=== PATIENT | female | born 1970 | race Caucasian/White ===

== ENCOUNTER 2018-09-18 11:00 | Emergency (ER) | payer BC ==
[2018-09-18 12:15] VITALS: BP 154/75
[2018-09-18] MEDS ORDERED: Penicillin VK TAB* 250 MG PO ONE (12:32)
--- NOTE | 2018-09-18 12:33 | UC ---
Dental HPI - HPI Summary HPI Summary: The patient is a 48-year-old female who broke a left lower tooth while eating carrots yesterday. Her tooth is now very sensitive to hot and cold. She feels like her left jaw is swelling. She is asplenic. She denies any fever or chills. - History of Current Complaint Chief Complaint: UCDentalProblem Stated Complaint: BROKEN TOOTH Time Seen by Provider: 09/18/18 12:20 Hx Obtained From: Patient Hx Last Menstrual Period: 09/04/18 Onset/Duration: Sudden Onset, Lasting Hours Severity: Severe Pain Intensity: 10 Pain Scale Used: 0-10 Numeric Aggravating Factor(s): Heat, Cold, Chewing Alleviating Factor(s): OTC Meds - transient relief with oragel...started taking T#3 Related History: Previous Dental Care on Same Tooth, Swelling Dental: 1 - fx/exposed nerve root/gum swelling - Allergies/Home Medications Allergies/Adverse Reactions: Allergies Allergy/AdvReac Type Severity Reaction Status Date / Time Latex, Natural Rubber Allergy Severe Anaphylatic Verified 09/18/18 12:15 Shock SEASONAL Allergy Mild See Comment Uncoded 09/18/18 12:15 Home Medications: Home Medications Amitriptyline TAB* [Elavil TAB*] 10 mg PO BEDTIME 09/18/18 [History Confirmed ] Pantoprazole TAB (NF) [Protonix TAB (NF)] 20 mg PO DAILY 09/18/18 [History Confirmed 09/18/18] Propranolol TAB* [Inderal TAB*] 60 mg PO DAILY 09/18/18 [History Confirmed 09/18] Ursodiol CAP* [Actigall CAP 300 MG*] 300 mg PO BID 09/18/18 [History Confirmed 09/18/18] buPROPion TAB* [Wellbutrin TAB*] 100 mg PO BID 09/18/18 [History Confirmed 09/18] celeCOXIB CAP* [CeleBREX CAP*] 100 mg PO DAILY 09/18/18 [History Confirmed 09/18] PMH/Surg Hx/FS Hx/Imm Hx Previously Healthy: Yes Endocrine History: Dyslipidemia Cardiovascular History: Hypertension - Surgical History Surgical History: Yes Surgery Procedure, Year, and Place: [place] [facility] [place]pass and Spleenectomy, 2003, [place]; [place]olecystectomy, ~2009, [facility] [place]; Tonsillectomy, ~1974 , [place]; Herniorrhaphy, 1970, [place] - Family History Known Family History: Positive: Cardiac Disease - Social History Alcohol Use: Rare Substance Use Type: None Smoking Status (MU): Never Smoked Tobacco Review of Systems Constitutional: Negative Skin: Negative Eyes: Negative ENT: Dental Pain Respiratory: Negative Cardiovascular: Negative Gastrointestinal: Negative Genitourinary: Negative Motor: Negative Neurovascular: Negative Musculoskeletal: Negative Neurological: Negative Psychological: Negative All Other Systems Reviewed And Are Negative: Yes Physical Exam Triage Information Reviewed: Yes Appearance: Well-Appearing, No Pain Distress, Well-Nourished Vital Signs: Initial Vital Signs Temp 97.8 F 09/18/18 12:10 Pulse 61 09/18/18 12:10 Resp 18 09/18/18 12:10 BP 154/75 09/18/18 12:10 Pulse Ox 100 09/18/18 12:10 Eyes: Positive: Conjunctiva Clear ENT: Positive: Hearing grossly normal. Negative: Nasal congestion, Nasal drainage, Trismus, Muffled voice, Hoarse voice Dental: Positive: Other: - abysmal dentition Respiratory: Positive: Lungs clear, Normal breath sounds, No respiratory distress, No accessory muscle use Cardiovascular: Positive: RRR, No Murmur Abdomen Description: Positive: Nontender, No Organomegaly. Negative: CVA Tenderness (R), CVA Tenderness (L) Musculoskeletal: Positive: ROM Intact, No Edema Neurological: Positive: Alert, Muscle Tone Normal Psychological Exam: Normal Skin Exam: Normal Dental Complaint Course/Dx - Differential Dx/Diagnosis Provider Diagnoses: fractured tooth. dental abscess. asplenia Discharge - Sign-Out/Discharge Documenting (check all that apply): Patient Departure All imaging exams completed and their final reports reviewed: No Studies - Discharge Plan Condition: Stable Disposition: HOME Prescriptions: Penicillin VK 500 MG TAB(NF) [Penicillin VK 500 mg Tab] 500 mg PO QID #28 tab Patient Education Materials: Dental Abscess (ED), Acute Dental Trauma (ED) Referrals: Kayleen Archibald MD [Primary Care Provider] - Additional Instructions: recheck for new or worsening symptoms recheck in 2 days if not improved see dentist first available appt - Billing Disposition and Condition Condition: STABLE Disposition: Home
== END 2018-09-18 12:50 | disposition home or self-care (01) ==
LOC: UCCORT 11:00
DX: S02.5XXA Fracture of tooth (traumatic), initial encounter for closed fracture (principal); K04.7 Periapical abscess without sinus; Q89.01 Asplenia (congenital); I10 Essential (primary) hypertension; E78.5 Hyperlipidemia, unspecified; J30.2 Other seasonal allergic rhinitis; X58.XXXA Exposure to other specified factors, initial encounter; Y92.9 Unspecified place or not applicable; Z98.84 Bariatric surgery status; Z91.040 Latex allergy status
CPT/HCPCS: 99212; A9270-GY; G0463

== ENCOUNTER 2019-02-20 10:21 | Emergency (ER) | payer BC ==
--- OUTSIDE RECORDS SUMMARY | 2019-02-20 10:28 | XMS REPORT | Continuity of Care Document ---
:1970 External Reference #:[id number] Author Name Elena Pabon NP Address [address] [address] Care Team Providers Name Role Phone Kayleen Archibald M.D. Care Team Information Intelligence Officer Unavailable Kayleen Archibald M.D. Primary Care Physician Unavailable Payers Date Identification Numbers Payment Provider Subscriber Effective: Policy Number: [id number] Essential Plan Tianna Oquendo 2015 [employer] Name: Essential Plan 1 [address] [address] PayID: [id number] [place] [address] Advance Directives Description No Information Available Problems Date Description Provider Status Onset: 10/08/2015 Migraine without aura, not refractory Nano Arthur NP Active Onset: 10/08/2015 Mild recurrent major depression Nano Arthur NP Active Onset: 10/09/2015 H/O splenectomy Kayleen Archibald M.D. Active Onset: 10/11/2015 Vitamin D deficiency Kayleen Archibald M.D. Active Onset: 01/21/2018 Microscopic hematuria Kayleen Archibald M.D. Active Onset: 01/21/2018 Low back pain Kayleen Archibald M.D. Active Onset: 12/13/2016 Calculus of bile duct without obstruction Kayleen Archibald M.D. 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 Tobacco Use Start: Unknown Nonsmoker Tobacco Use Start: Unknown Never Smoked Cigarettes Smoking Status Reviewed: 08/03/17 Never Smoked Cigarettes ETOH Use Occasionally consumes alcohol Recreational Drug Use Denies Drug Use Exercise Type/Frequency Exercises rarely Seat Belt/Car Seat Always uses seat belt Allergies, Adverse Reactions, Alerts Date Description Reaction Status Severity Comments 09/15/2015 NKDA Active 09/15/2015 Latex Active hives, tongue swelling Medications Medication Date Status Form Strength Qnty SIG Indications Ordering Provider Nitrofurantoin 02/17 Active Capsules 100mg 10cap take one N39.0 Elena Christine Monohyd s by mouth Cm twice [employer] daily for 5 days. Ibuprofen 02/10 Active Tablets 800mg 30tab take 1 tab Elena Christine /2018 s 1-2 times Cm per day [employer] Ventolin HFA 01/27 Active Aerosol 108(90Bas 18gm take 1-2 J15.9 Elena CNakita /2018 e) puffs gwen Pabon/Sarah inhaled [employer]GER every 4 hours as needed for wheezing or tightness in the chest Valsartan 01/27 Active Tablets 80mg 30tab 1 by mouth I10 Elena C. /2018 s every day SUPRIYA Pabon Amitriptyline HCL 05/13 Active Tablets 50mg 30tab Take 1 G43.009 s Tablet By Mi Archibald M.D. Every Night Tizanidine HCL 12/19 Active Tablets 4mg 60tab take one M54.31 s by mouth Dragan, as needed M.D. for pain three times per day Acetaminophen-Codei 08/04 Active Tablets 300-30mg 120ta take one G43.009 Elena Christine ne # bs tablet by mi Pabon [employer]GER every 6 hours as needed for pain Low-Ogestrel 04/02 Active Tablets 0.3-30mg- 168ta Take One mcg bs Tablet By Dragan Mouth M.D. Every Day Maxalt 12/13 Active Tablets 10mg 30tab 1 tab by G43.009 s mouth Dragan, every day M.D. as needed migraine; can repeat in 2 hours Propranolol HCL 03/29 Active Tablets 60mg 30tab Take One G43.009 Amelia s Tablet By Viri Mi [place], Every Day [employer]GER Bupropion HCL ER 10/09 Active Tablets 150mg 60tab Take Two F33.0 Amelia (XL) ER 24HR s Tablets By Viri Mouth [place], Every Day [employer] Pantoprazole Sodium 09/15 Active Tablets 20mg 60tab Take One R10.13 Kd A. s Tablet By Yulissa, Mouth M.D. Twice A Day Ursodiol Active Capsules 300mg 1 PO qd Chlorthalidone 12/18 Hx Tablets 25mg 30tab 1 by mouth I10 Elena Christine /2018 s every day Cm, - [employer]GER 01/27 Amoxicillin/Clavula 01/21 Hx Tablets 500-125mg 14tab 1 by mouth Kayleen nunu Arabella s twice a [place], - day x 7 M.D. Amitriptyline HCL 01/21 Hx Tablets 25mg 30tab Take One G43.009 Kayleen s Tablet By [place], - Mouth AT M.D. 05/13 Bedtime Naproxen 12/19 Hx Tablets 500mg 30tab take one M54.31 Elena Christine s by mouth Cm, - twice [employer] 05/13 daily needed Physical Therapy 12/19 Hx please M54.31 Elena Christine /2017 diagnose Cm, - and treat [employer]GER 01/20 for lower back pain with radiation down right leg Skelaxin 07/30 Hx Tablets 800mg 30tab 1 by mouth Elena Christine /2016 s three Cm, - times a [employer] 05/13 day needed muscle spasms Acetaminophen-Codei 06/03 Hx Tablets 300-60mg 90tab 1 tab G43.009 Kayleen ne #4 s dorothy Archibald, - times a M.D. 08/04 day needed Hydrocodone-Acetami 04/08 Hx Tablets 5-325mg 60tab 1 tab by G43.009 Kayleen mckeonhen /2016 s mouth [place], - twice a M.D. 06/03 day needed Acetaminophen-Codei 02/12 Hx Tablets 300-30mg 180ta 1 tab by G43.009 Kayleen ne #3 bs mouth [place], - every 4 M.D. 05/16 hours needed Winsome 02/12 Hx Tablets 0.35mg 30tab 1 by mouth Z30.41 s every day [place], - M.D. 05/13 Amitriptyline HCL 02/12 Hx Tablets 10mg 30tab Take One G43.009 Kayleen s Tablet By [place], - Mouth AT M.D. 01/21 Bedtime Amoxicillin/Clavula 01/06 Hx Tablets 500-125mg 14tab 1 by mouth Kayleen nunu Potassium s twice a [place], - day x 7 M.D. Hydrocodone-Acetami 12/13 Hx Tablets 5-325mg 60tab 1 tab by G43.009 Kayleen nophen s mouth [place], - twice a M.D. Orphenadrine 09/09 Hx Tablets 100mg 60tab Take One Kayleen Citrate ER ER 12HR s Tablet By [place], - Mouth M.D. 02/12 Twice Day as Needed For Muscle Spasm Hydrocodone-Acetami 08/15 Hx Tablets 5-325mg 30tab 1 twice a s day as [place], - needed M.D. 12/13 Trazodone HCL 08/09 Hx Tablets 50mg 30tab Take 1/2 - F51.01 s 1 Tablet [place], - By Mouth M.D. 02/12 Night as Needed Hydrocodone-Acetami 07/26 Hx Tablets 5-325mg 30tab 1 twice a Kayleen nophen s day as [place], - needed M.D. 08/09 Orphenadrine 03/29 Hx Tablets 100mg 60tab Take One Kayleen Citrate ER ER 12HR s Tablet By [place], - Mouth M.D. 08/09 Twice Day as Needed For Muscle Spasm Propranolol HCL 03/05 Hx Tablets 10mg 30tab 2 by mouth G43.009 Kayleen s every day [place], - M.D. 03/29 Maxalt 03/05 Hx Tablets 5mg 14tab take 1 G43.009 Nano s tablet by SUPRIYA Arthur - mouth to 12/13 abor migraine. if migraine persists after 6 hours, may repeat once then stop. maximum daily dose o Sumatriptan 11/27 Hx Tablets 100mg 30tab take 1/2 G43.009 Kayleen Succinate s tablet by [place], - mouth at M.D. 03/05 onset migraine, may repeat in 2 hours Skelaxin 11/03 Hx Tablets 800mg Delio JNakita /2014 [place], - M.D. 11/03 Skelaxin 11/03 Hx Tablets 800mg 30tab 1 by mouth s three [place], - times a M.D. 03/29 day needed muscle spasms Cyclobenzaprine HCL 10/30 Hx Tablets 5mg 60tab 1 tab by M54.5 Kayleen s mouth [place], - three M.D. 11/03 times day as needed Acetaminophen-Codei 09/15 Hx Tablets 300-30mg 240ta 2 tab by G43.009 Kayleen ne # bs mouth [place], - every 6 M.D. 12/13 hours needed Sumatriptan 09/15 Hx Tablets 50mg 8tabs 1 by mouth G43.009 Kayleen Succinate at the [place], - first sign M.D. 11/27 migraine and may repeat x 1 in 2 hours Low-Ogestrel 00/00 Hx Tablets 0.3-30mg- 168ta 1 by mouth Kayleen /0000 mcg bs every day [place], - M.D. 02/12 Temazepam 0000 Hx Capsules 15mg 15cap 1 by mouth F51.09 Kayleen /0000 s every [place], - night at M.D. 03/29 bedtime needed Escitalopram 00/00 Hx Tablets 20mg 30tab 1 by mouth F33.0 Nano Oxalate /0000 s every day SUPRIYA Arthur - 02/12 Hydrochlorothiazide 0000 Hx Tablets 25mg 30tab Take One Kayleen /0000 s Tablet By [place], - Mouth M.D. 12/13 Celecoxib 0000 Hx Capsules 200mg take 1 Unknown /0000 capsule by - mouth qd 02/10 Immunizations CPT Code Status Date Vaccine Lot # [id number] Given 10/30/2015 Pneumococcal Conjugate Vacc-13 [id number] Given 10/09/2015 Influenza Vac, Quadrivalent, Slit Virus, Im [id number] Vital Signs Date Vital Result Comment 02/17/2019 1:30pm BP Systolic 124 mmHg BP Diastolic 86 mmHg Heart Rate 66 /min Body Temperature 98.9 F Respiratory Rate 18 /min Weight 192.00 lb 01/27/2019 1:35pm BP Systolic 148 mmHg BP Diastolic 90 mmHg Heart Rate 90 /min Body Temperature 97.9 F Respiratory Rate 20 /min Height 61 inches 5'1" Weight 193.00 lb BMI (Body Mass Index) 36.5 kg/m2 12/18/2018 1:10pm BP Systolic 160 mmHg BP Diastolic 100 mmHg Heart Rate 60 /min Body Temperature 98.8 F Respiratory Rate 16 /min Weight 194.00 lb 05/13/2018 2:27pm BP Systolic 128 mmHg BP Diastolic 88 mmHg Heart Rate 72 /min Body Temperature 98.4 F Respiratory Rate 16 /min Height 61.25 inches 5'1.25" Weight 191.00 lb BMI (Body Mass Index) 35.8 kg/m2 01/21/2018 3:42pm BP Systolic 122 mmHg BP Diastolic 74 mmHg Heart Rate 72 /min Body Temperature 98.6 F Height 61.25 inches 5'1.25" Weight 200.00 lb BMI (Body Mass Index) 37.5 kg/m2 12/19/2017 7:58am BP Systolic 122 mmHg BP Diastolic 80 mmHg Heart Rate 72 /min Body Temperature 97.9 F Height 61.25 inches 5'1.25" Weight 196.00 lb BMI (Body Mass Index) 36.7 kg/m2 08/29/2017 1:56pm BP Systolic 118 mmHg BP Diastolic 70 mmHg Heart Rate 54 /min Body Temperature 98.6 F Height 61.25 inches 5'1.25" 08/04/2017 1:45pm BP Systolic 114 mmHg BP Diastolic 60 mmHg Heart Rate 72 /min Body Temperature 99.5 F Respiratory Rate 16 /min Height 61.25 inches 5'1.25" Weight 191.38 lb BMI (Body Mass Index) 35.9 kg/m2 02/12/2017 1:13pm BP Systolic 116 mmHg BP Diastolic 70 mmHg Heart Rate 66 /min Body Temperature 98.4 F Respiratory Rate 16 /min Height 61.25 inches 5'1.25" Weight 192.25 lb BMI (Body Mass Index) 36.0 kg/m2 12/13/2016 2:11pm BP Systolic 120 mmHg BP Diastolic 80 mmHg Heart Rate 78 /min Body Temperature 98.8 F Height 61.25 inches 5'1.25" Weight 183.50 lb BMI (Body Mass Index) 34.4 kg/m2 08/09/2016 10:40am BP Systolic 100 mmHg BP Diastolic 70 mmHg Heart Rate 60 /min Body Temperature 99.1 F Respiratory Rate 16 /min Height 61.25 inches 5'1.25" Weight 183.00 lb BMI (Body Mass Index) 34.3 kg/m2 03/29/2016 10:45am BP Systolic 102 mmHg BP Diastolic 50 mmHg Heart Rate 64 /min Body Temperature 98.1 F Respiratory Rate 13 /min Height 61.25 inches 5'1.25" Weight 181.00 lb BMI (Body Mass Index) 33.9 kg/m2 03/05/2016 1:36pm BP Systolic 110 mmHg BP Diastolic 72 mmHg Heart Rate 68 /min Body Temperature 98.0 F Respiratory Rate 16 /min Height 61.25 inches 5'1.25" Weight 181.00 lb BMI (Body Mass Index) 33.9 kg/m2 10/30/2015 2:00pm BP Systolic 132 mmHg BP Diastolic 84 mmHg Heart Rate 68 /min Body Temperature 98.4 F Respiratory Rate 16 /min Height 61.25 inches 5'1.25" Weight 196.00 lb BMI (Body Mass Index) 36.7 kg/m2 10/09/2015 7:59am BP Systolic 124 mmHg BP Diastolic 82 mmHg Heart Rate 64 /min Body Temperature 98.2 F Height 61.25 inches 5'1.25" Weight 188.00 lb BMI (Body Mass Index) 35.2 kg/m2 Right Visual Acuity Distance 20/25 Left Visual Acuity Distance 20/70 09/15/2015 1:50pm BP Systolic 114 mmHg BP Diastolic 84 mmHg Heart Rate 66 /min Body Temperature 97.3 F Height 60.5 inches 5'0.50" Weight 184.25 lb BMI (Body Mass Index) 35.4 kg/m2 Results Test Date Facility Test Result H/L Range Note Ua - Micro ([facility]) 02/17/2019 [facility] Appe[facility] clear (607)- - Color yellow Glucose, Urine (Fma/CMC/CTX) negative Bilirubin negative Ketones 15mg # SP Grav 1.020 Blood small # PH 5.5 Protein SSA negative # Urobil 0.2 Nitrite negative Leukocytes (Fma/CMC/Centrex) large # Hyaline - /Lpf # Granular - /Lpf # WBC (Fma,Centrex) 25-35 # RBC 6-7 # Mucus (Fma/CBC/Centrex) - /Lpf # Epith occ /Lpf # Bacteria trace /Hpf # Amorphous (Fma/CMC/Centrex) - /Lpf # Crystals, Fluid (Fma/CMC/CTX) - # Z#Comments - # Ua - Micro ([facility]) 05/13/2018 [facility] Appearance slightly cloudy # (607)- - Color yellow Glucose, Urine (Fma/CMC/CTX) negative Bilirubin negative Ketones 15mg/dl # SP Grav 1.020 Blood moderate # PH 5.5 Protein negative Urobil 0.2 Nitrite negative Leukocytes (a/CMC/Centrex) large # WBC (a,Centrex) 20-30 # RBC 10-12 # Epith occ /Lpf # Bacteria +1 /Hpf # Comprehensive Metabolic Prof 05/13/2018 [facility] Sodium 135 mEq/L 134-149 Potassium 4.0 mEq/L 3.6-5.5 Chloride 104 mEq/L 94-112 Carbon Dioxide 23 mEq/L 21-32 Glucose 86 mg/dL 70-105 BUN 10 mg/dL 6-26 Creatinine 0.6 mg/dL 0.6-1.4 BUN/Creat Ratio 16.7 CALC 8.0-36.0 Calcium 9.2 mg/dL 8.6-10.2 Total Protein 7.1 g/dL 6.4-8.3 Albumin 4.6 g/dL 3.8-5.5 Globulin 2.5 g/dL 2.0-4.8 A/G Ratio 1.8 CALC 0.6-2.3 Alk. Phosphatase 86 U/L 30-110 Alt (SGPT) 16 U/L 7-35 Ast (Sgot) 17 U/L 5-34 Total Bilirubin 0.4 mg/dL 0.2-1.3 GFR Non- >60 ml/min/1.73m^ >=60 GFR >60 ml/min/1.73m^ >=60 CBC Electronic a 05/13/2018 [facility] WBC 10.8 x10^3/UL High 4.0- 10.0 RBC 4.52 x10^6/UL 3.93-6.00 HGB 13.3 g/dL 12.0-17.0 HCT 41 % 35-50 MCV 91.6 fL 80.0-95.0 MCH 29.4 pg 25.6-32.2 MCHC 32.2 g/dL 32.0-36.0 RDW-CV 12.9 % 11.6-14.4 PLT 386 x10^3/UL 163-400 MPV 9.9 fL 9.4-12.4 Stephanie# 6.61 x10^3/UL High 1.56-6.13 Lymph# 3.07 x10^3/UL 1.18-3.74 [place]# 1.05 x10^3/UL High 0.24-0.82 Eos # 0.1 x10^3/UL 0.0-0.5 Baso # 0.03 x10^3/UL 0.01-0.08 Stephanie% 60.9 % 34.0-70.0 Lymph % 28.3 % 20.0-52.0 [place]% 9.7 % 5.0-12.0 Eos% 0.6 % Low 0.7-7.0 Baso% 0.3 % 0.1-1.2 Ua - Micro ([facility]ma) 01/21/2018 [facility] Appearance CLEAR (607)- - Color YELLOW Glucose, Urine (Fma/CMC/CTX) NEG Bilirubin NEG Ketones TRACE SP Grav 1.025 Blood TRACE-INTACT # PH 6.5 Protein NEG Urobil 0.2 Nitrite NEG Leukocytes (Fma/CMC/Centrex) NEG Hyaline - /Lpf Granular - /Lpf WBC (Fma,Centrex) 5-10 # RBC 2-4 # Mucus - /Lpf Epith FEW /Lpf # Bacteria 1+ /Hpf # Amorphous - /Lpf Crystals, Fluid (Fma/CMC/CTX) - Z#Comments - Urine Culture, 01/21/2018 [facility] Urine Final 1, 2 Comprehensive [address] [facility] Culture,[place] [address] (607)- - Result 1 See Comment: 3 Ua - Non Micro ([facility]ma) 08/29/2017 [facility] Appearance clear (607)- - Color yellow Glucose, Urine (Fma/CMC/CTX) - Bilirubin - Ketones trace # SP Grav >=1.030 Blood - PH 6.0 Protein - Urobil 0.2 Nitrite - Leukocytes (Fma/CMC/Centrex) - Laboratory test 08/25/2017 [facility] Hemoglobin A1c 4.8 % N Less than 6.0 4 finding (Glyco HGB) Urine Microalbumin 08/25/2017 [facility] Urine Creatinine 156.17 mg/dL N Random Ur Microalbumin (mg/L) 18.3 mg/L N Urine Microalbumin/Creatinine 11.7 ug/mg N <31 Laboratory test 08/25/2017 [facility] TSH (Thyroid Stim Horm) 2.56 mcIU/mL N 0.34-5.60 finding Lipid Profile 08/25/2017 [facility] Triglycerides 86 mg/dL N 5 (Trig/Chol/HDL) Cholesterol 129 mg/dL N 6 HDL Cholesterol 42.7 mg/dL N 7 LDL Cholesterol 69 mg/dL N 8 Comp Metabolic Panel 08/25/2017 [facility] Sodium 137 mmol/L N 133-145 Potassium 3.4 mmol/L Low 3.5-5.0 Chloride 107 mmol/L N 101-111 Co2 Carbon Dioxide 21 mmol/L Low 22-32 Anion Gap 9 mmol/L N 2-11 Glucose 65 mg/dL Low 70-100 Blood Urea Nitrogen 15 mg/dL N 6-24 Creatinine 0.59 mg/dL N 0.51-0.95 BUN/Creatinine Ratio 25.4 High 8-20 Calcium 8.4 mg/dL Low 8.6-10.3 Total Protein 6.2 g/dL Low 6.4-8.9 Albumin 3.9 g/dL N 3.2-5.2 Globulin 2.3 g/dL N 2-4 Albumin/Globulin Ratio 1.7 N 1-3 Total Bilirubin 0.40 mg/dL N 0.2-1.0 Alkaline Phosphatase 62 U/L N 34-104 Alt 11 U/L N 7-52 Ast 13 U/L N 13-39 Egfr Non- 108.8 N >60 Egfr 139.9 N >60 9 Cell Morphology 08/25/2017 [facility] Platelet Morphology Large N RBC Morphology Normal N Normal CBC Auto Diff 08/25/2017 [facility] White Blood Count 10.2 10^3/uL N 3.5-10.8 Red Blood Count 3.83 10^6/uL Low 4.0-5.4 Hemoglobin 11.6 g/dL Low 12.0-16.0 Hematocrit 35 % N 35-47 Mean Corpuscular Volume 92 fL N 80-97 Mean Corpuscular Hemoglobin 30 pg N 27-31 Mean Corpuscular HGB Conc 33 g/dL N 31-36 Red Cell Distribution Width 14 % N 10.5-15 Platelet Count 339 10^3/uL N 150-450 Mean Platelet Volume 11 um3 High 7.4-10.4 Abs Neutrophils 6.0 10^3/uL N 1.5-7.7 Abs Lymphocytes 3.3 10^3/uL N 1.0-4.8 Abs Monocytes 0.7 10^3/uL N 0-0.8 Abs Eosinophils 0.1 10^3/uL N 0-0.6 Abs Basophils 0.1 10^3/uL N 0-0.2 Abs Nucleated RBC 0.01 10^3/uL N Granulocyte % 58.6 % N 38-83 Lymphocyte % 32.2 % N 25-47 Monocyte % 7.3 % N 1-9 Eosinophil % 1.2 % N 0-6 Basophil % 0.7 % N 0-2 Nucleated Red Blood Cells % 0.1 N Urinalysis Profile 08/25/2017 [facility] Urine Color Yellow N Urine Appearance Cloudy N Urine Specific [place] 1.032 High 1.010-1.030 Urine pH 5.0 N 5-9 Urine Urobilinogen Negative N Negative Urine Ketones 1+ Abnormal Negative Urine Protein 1+(30 mg/dL) Abnormal Negative Urine Leukocytes Negative N Negative Urine Blood Negative N Negative Urine Nitrite Negative N Negative Urine Bilirubin 1+ Abnormal Negative Urine Glucose Negative N Negative Urine White Blood Cell Trace(0-5/hpf) N Absent Urine Red Blood Cell 2+(6-10/hpf) Abnormal Absent Urine Bacteria Absent N Absent Urine Squamous Epithelial Cell Present Abnormal Absent Ua - Micro (Fma) 08/05/2017 [facility] Appearance clear (607)- - Color yellow Glucose, Urine (Fma/CMC/CTX) 500 # Bilirubin negative Ketones trace # SP Grav 1.025 Blood trace-intact # PH 6.0 Protein ssa trace # Urobil 0.2 Nitrite negative Leukocytes (Fma/CMC/Centrex) negative WBC (Fma,Centrex) 2-3 RBC 3-4 Mucus - /Lpf Epith occ /Lpf Bacteria trace /Hpf Amorphous - /Lpf Crystals, Fluid (Fma/CMC/CTX) many Ca+ oxalate # Comprehensive Metabolic Prof 02/12/2017 [facility] Sodium 142 mEq/L 134-149 Potassium 4.3 mEq/L 3.6-5.5 Chloride 110 mEq/L 94-112 Carbon Dioxide 21 mEq/L 21-32 Glucose 161 mg/dL High 70-105 10 BUN 8 mg/dL 6-26 Creatinine 0.6 mg/dL 0.6-1.4 BUN/Creat Ratio 13.3 CALC 8.0-36.0 Calcium 9.4 mg/dL 8.6-10.2 Total Protein 6.5 g/dL 6.4-8.3 Albumin 4.2 g/dL 3.8-5.5 Globulin 2.3 g/dL 2.0-4.8 A/G Ratio 1.8 CALC 0.6-2.3 Alk. Phosphatase 80 U/L 30-110 Alt (SGPT) 16 U/L 7-35 Ast (Sgot) 15 U/L 5-34 Total Bilirubin 0.5 mg/dL 0.2-1.3 GFR Non- >60 ml/min/1.73m^ >=60 GFR >60 ml/min/1.73m^ >=60 Complete Blood Count 02/12/2017 [facility] medicine WBC 10.2 x10^3/UL High 3.6-9.6 RBC 4.01 x10^6/UL 3.90-5.70 HGB 12.6 g/dL 12.1-17.2 HCT 36 % 36-50 MCV 91.0 fL 82.2-97.4 MCH 31.4 pg 27.6-33.3 MCHC 34.7 g/dL 33.0-35.5 RDW 13.7 % 11.6-13.7 PLT 283 x10^3/UL 150-400 MPV 8.2 fL 7.4-10.4 Gran # 5.4 x10^3/UL 1.5-7.2 Lymph# 4.3 x10^3/UL 0.7-4.9 [place]# 0.5 x10^3/UL 0.1-0.9 Gran % 52.1 % 42.2-75.2 Lymph % 42.2 % 20.5-51.1 [place]% 5.7 % 1.7-9.3 Laboratory test 12/13/2016 [facility] PDF [id number] SEE IMAGE finding [address] [place] [address] (447)- - Toxassure(R) 12/13/2016 [facility] Report Summary FINAL 11 [address] (MW) [address] [place] [address] (996)- - PDF . Complete Blood Count 12/13/2016 [facility] WBC 9.0 x10^3/UL 3.6- 9.6 RBC 4.11 x10^6/UL 3.90-5.70 HGB 13.0 g/dL 12.1-17.2 HCT 38 % 36-50 MCV 93.0 fL 82.2-97.4 MCH 31.7 pg 27.6-33.3 MCHC 34.0 g/dL 33.0-35.5 RDW 13.7 % 11.6-13.7 PLT 409 x10^3/UL High 150-400 MPV 6.7 fL Low 7.4-10.4 Gran # 4.9 x10^3/UL 1.5-7.2 Lymph# 3.5 x10^3/UL 0.7-4.9 [place]# 0.6 x10^3/UL 0.1-0.9 Gran % 53.3 % 42.2-75.2 Lymph % 40.0 % 20.5-51.1 [place]% 6.7 % 1.7-9.3 Comprehensive Metabolic Prof 12/13/2016 [facility] Sodium 144 mEq/L 134-149 Potassium 3.9 mEq/L 3.6-5.5 Chloride 111 mEq/L 94-112 Carbon Dioxide 22 mEq/L 21-32 Glucose 75 mg/dL 70-105 BUN 18 mg/dL 6-26 Creatinine 0.6 mg/dL 0.6-1.4 BUN/Creat Ratio 30.0 CALC 8.0-36.0 Calcium 9.7 mg/dL 8.6-10.2 Total Protein 6.8 g/dL 6.4-8.3 Albumin 4.2 g/dL 3.8-5.5 Globulin 2.6 g/dL 2.0-4.8 A/G Ratio 1.6 CALC 0.6-2.3 Alk. Phosphatase 157 U/L High 30-110 12 Alt (SGPT) 109 U/L High 7-35 13 Ast (Sgot) 98 U/L High 5-34 14 Total Bilirubin 0.6 mg/dL 0.2-1.3 GFR Non- >60 ml/min/1.73m^ >=60 GFR >60 ml/min/1.73m^ >=60 Ua - Micro (Fma) 03/05/2016 [facility] Appearance CLEAR (607)- - Color YELLOW Glucose, Urine (Fma/CMC/CTX) NEG Bilirubin ICTO:NEG Ketones TRACE # SP Grav 1.025 Blood NEG PH 5.5 Protein NEG Urobil 0.2 Nitrite NEG Leukocytes (Fma/CMC/Centrex) NEG Hyaline 0-1 /Lpf # Granular - /Lpf WBC (Fma,Centrex) 3-5 # RBC 2-3 # Mucus - /Lpf Epith RARE /Lpf # Bacteria TRACE /Hpf # Amorphous - /Lpf Crystals, Fluid (Fma/CMC/CTX) - Z#Comments - Complete Blood Count 10/09/2015 [facility] WBC 7.8 x10^3/UL 3.6- 9.6 RBC 4.43 x10^6/UL 3.90-5.70 HGB 13.7 g/dL 12.1-17.2 HCT 41 % 36-50 MCV 93.0 fL 82.2-97.4 MCH 31.0 pg 27.6-33.3 MCHC 33.4 g/dL 33.0-35.5 RDW 13.5 % 11.6-13.7 PLT 357 x10^3/UL 150-400 MPV 7.5 fL 7.4-10.4 Gran # 4.2 x10^3/UL 1.5-7.2 Lymph# 3.2 x10^3/UL 0.7-4.9 [place]# 0.4 x10^3/UL 0.1-0.9 Gran % 52.8 % 42.2-75.2 Lymph % 41.7 % 20.5-51.1 [place]% 5.5 % 1.7-9.3 Laboratory test 10/09/2015 [facility] Vitamin B-12 231 pg/mL 230- 1050 finding Lipid Profile 10/09/2015 [facility] Cholesterol 145 mg/dL 120-200 Triglycerides 101 mg/dL 30-200 HDL Cholesterol 36 mg/dL 30-85 LDL (Calculated) 89 CALC 0-129 VLDL Cholesterol 20 mg/dL 0-50 HDL Risk Factor 4.0 CALC 0.0-4.4 Laboratory test finding 10/09/2015 [facility] TSH 1.16 mIU/L 0.50- 6.00 Vitamin D25 15 Low 30-100 15 Comprehensive Metabolic Prof 10/09/2015 [facility] Sodium 138 mEq/L 134-149 Potassium 3.6 mEq/L 3.6-5.5 Chloride 97 mEq/L 94-112 Carbon Dioxide 27 mEq/L 21-32 Glucose 84 mg/dL 70-105 BUN 9 mg/dL 6-26 Creatinine 0.5 mg/dL Low 0.6-1.4 16 BUN/Creat Ratio 18.0 CALC 8.0-36.0 Calcium 9.1 mg/dL 8.6-10.2 Total Protein 6.3 g/dL Low 6.4-8.3 17 Albumin 4.2 g/dL 3.8-5.5 Globulin 2.1 g/dL 2.0-4.8 A/G Ratio 2.0 CALC 0.6-2.3 Alk. Phosphatase 66 U/L 30-110 Alt (SGPT) 28 U/L 7-35 Ast (Sgot) 27 U/L 5-34 Total Bilirubin 0.6 mg/dL 0.2-1.3 GFR Non- >60 ml/min/1.73m^ >=60 GFR >60 ml/min/1.73m^ >=60 1 SRC:clean catch 1 cherry uri ne tube 2 Source of Specimen: clean catch 1 cherry uri 3 Source of Specimen: clean catch 1 cherry uri No growth in 36 - 48 hours. 4 Therapeutic target for the treatment of diabetes Mellitus patients is <7% HBA1C, and in selective patients <6.0%.Please refer to [place] [employer] Diabetic care guidelines for further information. 5 Desirable <150 Borderline high 150-199 High 200-499 Very High >500 6 Desirable <200 Borderline high 200-239 High >239 7 Low <40 Desirable: 40-60 High: >60 8 Desirable: <100 mg/dL Near Optimal: 100-129 mg/dL Borderline High: 130-159 mg/dL High: 160-189 mg/dL Very High: >189 mg/dL 9 Because ethnic data is not always readily available, this report includes an eGFR for both -Americans and non- Americans. The National Kidney Disease Education Program (NKDEP) does not endorse the use of the MDRD equation for patients that are not between the ages of 18 and 70, are , have extremes of body size, muscle mass, or nutritional status, or are non- or non-. According to the [employer], irrespective of diagnosis, the stage of the disease is based on the level of kidney function: Stage Description GFR(mL/min/1.73 m(2)) 1 Kidney damage with normal or decreased GFR 90 2 Kidney damage with mild decrease in GFR 60-89 3 Moderate decrease in GFR 30-59 4 Severe decrease in GFR 15-29 5 Kidney failure <15 (or dialysis) 10 RESULTS VERIFIED BY REPEAT ANALYSIS 11 TOXASSURE SELECT 13 (MW) Test Result Flag Units Drug Present and Declared for Prescription Verification Hydrocodone 208 EXPECTED ng/mg creat Norhydrocodone 115 EXPECTED ng/mg creat Hydrocodone and its subsequent metabolite norhydrocodone are minor metabolites of codeine; concentrations of each of these compounds rarely exceed 15% of the codeine concentration when this is the source. Sources of hydrocodone include scheduled prescription medications. Norhydrocodone is an expected metabolite of hydrocodone. Drug Present not Declared for Prescription Verification Codeine 22545 UNEXPECTED ng/mg creat Morphine 679 UNEXPECTED ng/mg creat Norcodeine 3623 UNEXPECTED ng/mg creat Sources of codeine include scheduled prescription medications; morphine is an expected metabolite of codeine. Other sources of morphine include scheduled prescription medications or as a metabolite of heroin. Norcodeine is an expected metabolite of codeine. Test Result Flag Units Ref Range Creatinine 53 mg/dL >=20 Declared Medications: The flagging and interpretation on this report are based on the following declared medications. Unexpected results may arise from inaccuracies in the declared medications. Note: The testing scope of this panel includes these medications: Hydrocodone (Hydrocodone-Acetaminophen) Note: The testing scope of this panel does not include following reported medications: Acetaminophen (Hydrocodone-Acetaminophen) Bupropion Escitalopram Ethinyl Estradiol (Low-Orgestrel) Norgestrel (Low-Orgestrel) Orphenadrine Pantoprazole Propranolol Rizatriptan (Maxalt) Trazodone Ursodiol For clinical consultation, please call . 12 RESULTS VERIFIED BY REPEAT ANALYSIS 13 RESULTS VERIFIED BY REPEAT ANALYSIS 14 RESULTS VERIFIED BY REPEAT ANALYSIS 15 RESULTS VERIFIED BY REPEAT ANALYSIS 16 RESULTS VERIFIED BY REPEAT ANALYSIS 17 RESULTS VERIFIED BY REPEAT ANALYSIS Procedures Date Code Description Status 05/25/2018 [id number] Mammogram Completed 10/09/2015 55306 Vision Test- screening test of visual acuity, Completed quantitative, bila Encounters Type Date Location Provider Dx Diagnosis Office Visit 01/27/2019 [facility] Office Elena Stevens15.9 Unspecified 1:30p SUPRIYA Pabon bacterial pneumonia I10 Essential (primary) hypertension Office Visit 12/18/2018 [facility] Elena RobertsonNakita G43.009 Migraine w/o aura, 1:30p Office Cm, 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 not intractable, w/o status migrainosus M54.31 Sciatica, right side R31.29 Other microscopic hematuria Z12.31 Encntr screen mammogram for malignant neoplasm of breast Office Visit 01/21/2018 3:40p [facility] Office Kayleen Archibald, G43.009 Migraine w/o aura, M.D. not intractable, w/o status migrainosus M54.5 Low back pain R31.29 Other microscopic hematuria F33.0 Major depressive disorder, recurrent, mild J06.9 Acute upper respiratory infection, unspecified Office Visit 12/19/2017 8:00a [facility] Office Elena Christine M54.31 Sciatica, right Cm, PHARMACY DISTRICT MANAGER side Office Visit 08/29/2017 2:15p [facility] Elena Christine M54.5 Low back pain SUPRIYA Pabon R31.29 Other microscopic hematuria Office Visit 08/04/2017 2:00p [facility] Amelia Meredith M54.5 Low back pain Calin [employer]ARMACY DISTRICT MANAGER Office Visit 02/12/2017 1:40p [facility] Office Kayleen Archibald, F33.0 Major depressive M.D. disorder, recurrent, mild K80.50 Calculus of bile duct w/o cholangitis or cholecyst w/o obst G43.009 Migraine w/o aura, not intractable, w/o status migrainosus Z30.41 Encounter for surveillance of contraceptive pills Office Visit 12/13/2016 3:00p [facility] Office Kayleen Archibald, G43.009 Migraine w/o aura, M.D. not intractable, w/o status migrainosus F33.0 Major depressive disorder, recurrent, mild K80.50 Calculus of bile duct w/o cholangitis or cholecyst w/o obst E87.1 Hypo-osmolality and hyponatremia Office Visit 08/09/2016 10:50a [facility] Office Kayleen Archibald, F33.0 Major depressive M.D. disorder, recurrent, mild G43.009 Migraine w/o aura, not intractable, w/o status migrainosus F51.01 Primary insomnia Z12.31 Encntr screen mammogram for malignant neoplasm of breast Office Visit 03/29/2016 11:00a [facility] Kayleen Archibald, F33.0 Major depressive M.D. disorder, recurrent, mild G43.009 Migraine w/o aura, not intractable, w/o status migrainosus M54.5 Low back pain Office Visit 03/05/2016 [facility] Jeannie G43.009 Migraine w/o aura, 1:45p Office Loyda, REHABILITATION SERVICES COUNSELOR not intractable, w/o status migrainosus R30.0 Dysuria Office Visit 10/30/2015 2:30p [facility] Office Kayleen Archibald, F33.0 Major depressive M.D. 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 G43.009 Migraine w/o aura, not intractable, w/o status migrainosus Z13.220 Encounter for screening for lipoid disorders E55.9 Vitamin D deficiency, unspecified Office Visit 09/15/2015 2:00p [facility] Office Nano Arthur, R10.13 Epigastric pain PHARMACY DISTRICT MANAGER G43.009 Migraine w/o aura, not intractable, w/o status migrainosus F33.0 Major depressive disorder, recurrent, mild F51.09 Oth insomnia not due to a substance or known physiol cond Plan of Treatment 02/17/2019 - Elena Pabon, NPN39.0 Urinary tract infection, site not specifiedNew Medication:Nitrofurantoin Monohyd Macro 100 mg - take one by mouth twice daily for 5 days.Comments:If you are not improved within 48 hours please call or write to let me know.I10 Essential (primary) hypertensionComments:Call or return to the office if:* you get more than one blood pressure reading above 160/100 (even if only one of the numbers is high)* you feel close to passing out or actually pass out* you have new or worsening swelling in the ankles, legs , hands, or face* you develop palpiatations or funny [id number] Chronic pain syndromeComments:Narcotic contract reviewed and patient agreed.AllComments: 1. Patient has been queried about patient's goals/preferences and functional/ lifestyle goals at relevant visits. If relevant, describe: Has been discussed, noted above2. Treatment goals as explainedto the patient: see above3. Are there barriers to meeting treatment goals? Yes If Yes, please describe: Barriers include possible insurance limits, disease process, and difficulty with lifestyle changes4. Self-Management goals as described to the patient: Yes , see above As always, we strongly encourage a healthy diet and making physical activity a part of your every day life. If you have questions about how or where to start, please contact the office.
--- OUTSIDE RECORDS SUMMARY | 2019-02-20 10:28 | XMS REPORT | Continuity of Care Document ---
:1970 External Reference #:[id number] Author Name Elena Pabon NP Address [address] [facility] [place] [address] Care Team Providers Name Role Phone Kayleen Archibald M.D. Care Team Information Medical Data Analyst Unavailable Kayleen Archibald M.D. 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 /2018 e) puffs gwen Pabon/Act inhaled VENDING SUPERVISOR every 4 hours as needed for wheezing or tightness in the chest Valsartan 01/27 Active Tablets 80mg 30tab 1 by mouth I10 Elena CNakita s every day SUPRIYA aPbon Amitriptyline HCL 05/13 Active Tablets 50mg 30tab Take 1 G43.009 s Tablet By Mi Archibald M.DNakita Every Night Tizanidine HCL 12/19 Active Tablets 4mg 60tab take one M54.31 s by mouth Dragan, as needed M.D. for pain three times per day Acetaminophen-Codei 08/04 Active Tablets 300-30mg 180ta take one G43.009 Kayleen ne # bs tablet by mi Archibald M.DNakita every 4- 6 hours as needed for pain Low-Ogestrel 04/02 Active Tablets 0.3-30mg- 168ta Take One mcg bs Tablet By Mi Archibald M.D. Every Day Maxalt 12/13 Active Tablets 10mg 30tab 1 tab by G43.009 s mouth Dragan, every day M.D. as needed migraine; can repeat in 2 hours Propranolol HCL 03/29 Active Tablets 60mg 30tab Take One G43.009 Amelia s Tablet By Viri Mouth Calin, Every Day VENDING SUPERVISOR Bupropion HCL ER 10/09 Active Tablets 150mg 60tab Take Two F33.0 Amelia (XL) ER 24HR s Tablets By Viri Mouth Calin, Every Day VENDING SUPERVISOR Pantoprazole Sodium 09/15 Active Tablets 20mg 60tab Take One R10.13 Kd A. s Tablet By Darlow, Mouth M.D. Twice A Day Ursodiol Active Capsules 300mg 1 PO qd Unknown /0000 Celecoxib Active Capsules 200mg take 1 Unknown / capsule by mouth qd Chlorthalidone 12/18 Hx Tablets 25mg 30tab 1 by mouth I10 Elena Christine /2018 s every day Cm, - VENDING SUPERVISOR 01/27 Amoxicillin/Clavula 01/21 Hx Tablets 500-125mg 14tab 1 by mouth Kayleen nunubebe Bell s twice a [place], - day x 7 M.D. Amitriptyline HCL 01/21 Hx Tablets 25mg 30tab Take One G43.009 s Tablet By [place], - Mouth AT M.D. 05/13 Bedtime Naproxen 12/19 Hx Tablets 500mg 30tab take one M54.31 Elena CNakita /2017 s by mouth Cm, - twice VENDING SUPERVISOR 05/13 daily needed Physical Therapy 12/19 Hx please M54.31 Elena Christine /2017 diagnose Cm, - and treat VENDING SUPERVISOR 01/20 for lower back pain with radiation down right leg Skelaxin 07/30 Hx Tablets 800mg 30tab 1 by mouth Elena Christine /2016 s three Cm, - times a VENDING SUPERVISOR 05/13 day needed muscle spasms Acetaminophen-Codei 06/03 Hx Tablets 300-60mg 90tab 1 tab G43.Mac Beyer ne #4 s three [place], - times a M.D. 08/04 day needed Hydrocodone-Acetami 04/08 Hx Tablets 5-325mg 60tab 1 tab by G43.Mac mckeon s mouth [place], - twice a M.D. 06/03 day needed Acetaminophen-Codei 02/12 Hx Tablets 300-30mg 180ta 1 tab by G43.009 Kayleen ne #3 bs mouth [place], - every 4 M.D. 05/16 hours needed Winsome 02/12 Hx Tablets 0.35mg 30tab 1 by mouth Z30.41 s every day [place], - M.D. 05/13 Amitriptyline HCL 02/12 Hx Tablets 10mg 30tab Take One G43.009 Kayleen s Tablet By [place], - Mouth AT M.D. 01/21 Bedtime Amoxicillin/Clavula 01/06 Hx Tablets 500-125mg 14tab 1 by mouth Kayleen nunu Potassium s twice a [place], - day x 7 M.D. Hydrocodone-Acetami 12/13 Hx Tablets 5-325mg 60tab 1 tab by G43.009 Kayleen nop s mouth [place], - twice a M.D. Orphenadrine 09/09 Hx Tablets 100mg 60tab Take One Kayleen Citrate ER ER 12HR s Tablet By [place], - Mouth M.D. 02/12 Twice A Day as Needed For Muscle Spasm Hydrocodone-Acetami 08/15 Hx Tablets 5-325mg 30tab 1 twice a Kayleen nophen s day as [place], - needed M.D. 12/13 Trazodone HCL 08/09 Hx Tablets 50mg 30tab Take 12 - F51.01 s 1 Tablet [place], - By Mouth M.D. 02/12 Night as Needed Hydrocodone-Acetami 07/26 Hx Tablets 5-325mg 30tab 1 twice a Kayleen nophen s day as [place], - needed M.D. 08/09 Orphenadrine 03/29 Hx Tablets 100mg 60tab Take One Kayleen Citrate ER ER 12HR s Tablet By [place], - Mouth M.D. 08/09 Twice Day as Needed For Muscle Spasm Propranolol HCL 03/05 Hx Tablets 10mg 30tab 2 by mouth G43.009 s every day [place], - M.D. 03/29 Maxalt 03/05 Hx Tablets 5mg 14tab take 1 G43.009 s tablet by SUPRIYA Arthur - mouth to 12/13 migraine. if migraine persists after 6 hours, may repeat once then stop. maximum daily dose o Sumatriptan 11/27 Hx Tablets 100mg 30tab take 1/2 G43.009 Kayleen Succinate s tablet by [place], - mouth at M.D. 03/05 onset migraine, may repeat in 2 hours Skelaxin 11/03 Hx Tablets 800mg Delio Culp /2014 Katerin Varghese M.D. 11/03 Skelaxin 11/03 Hx Tablets 800mg 30tab 1 by mouth s three [place], - times a M.D. 03/29 day needed muscle spasms Cyclobenzaprine HCL 10/30 Hx Tablets 5mg 60tab 1 tab by M54.5 s mouth [place], - three M.D. 11/03 times day as needed Acetaminophen-Codei 09/15 Hx Tablets 300-30mg 240ta 2 tab by G43.009 Kayleen ne # bs mouth [place], - every 6 M.D. 12/13 hours needed Sumatriptan 09/15 Hx Tablets 50mg 8tabs 1 by mouth G43.009 Kayleen Succinate at the [place], - first sign M.D. 11/27 migraine and may repeat x 1 in 2 hours Low-Ogestrel 00 Hx Tablets 0.3-30mg- 168ta 1 by mouth Kayleen /0000 mcg bs every day [place], - M.D. 02/12 Temazepam Hx Capsules 15mg 15cap 1 by mouth F51.09 Kayleen /0000 s every [place], - night at M.D. 03/29 bedtime needed Escitalopram 00 Hx Tablets 20mg 30tab 1 by mouth F33.0 Nano Oxalate /0000 s every day SUPRIYA Arthur - 02/12 Hydrochlorothiazide 00 Hx Tablets 25mg 30tab Take One Kayleen /0000 s Tablet By [place], - Mouth M.D. 12/13 Every Immunizations CPT Code Status Date Vaccine Lot # [id number] Given 10/30/2015 Pneumococcal Conjugate Vacc-13 [id number] Given 10/09/2015 Influenza Vac, Quadrivalent, Slit Virus, Im [id number] Vital Signs Date Vital Result Comment 01/27/2019 1:35pm BP Systolic 148 mmHg BP [...] Result H/L Range Note Ua - Micro 05/13/2018 [facility] Appearance slightly cloudy # (Fma) (607)- - Color yellow Glucose, Urine (Fma/CMC/CTX) negative Bilirubin negative Ketones 15mg/dl # SP Grav 1.020 Blood moderate # PH 5.5 Protein negative Urobil 0.2 Nitrite negative Leukocytes (Fma/CMC/Centrex) large # WBC (Fma,Centrex) 20-30 # RBC 10-12 # Epith occ /Lpf # Bacteria +1 /Hpf # Comprehensive Metabolic 05/13/2018 Ernst Gin ([facility]) Sodium 135 mEq/L 134-149 Prof Potassium 4.0 mEq/L 3.6-5.5 Chloride 104 mEq/L [...] >60 ml/min/1.73m^ >=60 CBC Electronic a 05/13/2018 Ernst Gin (a) WBC 10.8 x10^3/UL High 4.0-10.0 RBC 4.52 x10^6/UL 3.93-6.00 HGB 13.3 g/dL 12.0-17.0 HCT 41 % 35-50 MCV 91.6 fL 80.0-95.0 MCH 29.4 pg 25.6-32.2 MCHC 32.2 g/dL 32.0-36.0 RDW-CV 12.9 % 11.6-14.4 PLT 386 x10^3/UL 163-400 MPV 9.9 fL 9.4-12.4 Stephanie# 6.61 x10^3/UL High 1.56-6.13 Lymph# 3.07 x10^3/UL 1.18-3.74 Victoria# 1.05 x10^3/UL High 0.24-0.82 Eos # 0.1 x10^3/UL 0.0-0.5 Baso # 0.03 x10^3/UL 0.01-0.08 Stephanie% 60.9 % 34.0-70.0 Lymph % 28.3 % 20.0-52.0 Victoria% 9.7 % 5.0-12.0 Eos% 0.6 % Low 0.7-7.0 Baso% 0.3 % 0.1-1.2 Ua - Micro (Fma) 01/21/2018 Family Medicine Appearance CLEAR (607)- - Color [...] [facility] Urine Final 1, 2 Comprehensive [address] [facility] Culture,[place] [address] (607)- - Result 1 See Comment: 3 Ua - Non Micro (Fma) 08/29/2017 [facility] Appearance clear (607)- - Color yellow Glucose, Urine (Fma/CMC/CTX) - Bilirubin - Ketones trace # SP Grav >=1.030 Blood - PH 6.0 Protein - Urobil 0.2 Nitrite - Leukocytes (Fma/CMC/Centrex) - Cell Morphology [place] [facility] [place] Morphology Large N RBC Morphology Normal N Normal Comp Metabolic Panel 08/25/2017 [facility] [place] Sodium 137 mmol/L N 133-145 Potassium 3.4 [...] 108.8 N >60 Egfr 139.9 N >60 4 Lipid Profile (Trig/Chol/HDL) 08/25/2017 [facility] [place] Triglycerides 86 mg/dL N 5 Cholesterol 129 mg/dL N 6 HDL Cholesterol 42.7 mg/dL N 7 LDL Cholesterol 69 mg/dL N 8 Laboratory test finding 08/25/2017 [facility] [place] TSH (Thyroid Stim 2.56 mcIU/mL N 0.34-5.60 Horm) Urine Microalbumin 08/25/2017 [facility] [place]rine Creatinine 156.17 mg/dL N Random Ur Microalbumin (mg/L) 18.3 mg/L N Urine Microalbumin/Creatinine 11.7 ug/mg N <31 Laboratory test 08/25/2017 [facility] [place] Hemoglobin A1c 4.8 % N Less than 6.0 9 finding (Glyco HGB) CBC Auto Diff 08/25/2017 [facility] [place] White Blood Count 10.2 10^3/uL N 3.5-10.8 [...] Cells % 0.1 N Urinalysis Profile 08/25/2017 [facility] [place] Urine Color Yellow N Urine Appearance Cloudy N Urine Specific [place] 1.032 High 1.010-1.030 Urine pH 5.0 N [...] Abnormal Absent Ua - Micro (Fma) 08/05/2017 Family [facility] Appearance clear (607)- - Color yellow Glucose, Urine (Fma/CMC/CTX) 500 # Bilirubin negative Ketones trace # SP Grav 1.025 Blood trace-intact # PH 6.0 Protein ssa trace # Urobil 0.2 Nitrite negative Leukocytes (Fma/CMC/Centrex) negative WBC (Fma,Centrex) 2-3 RBC 3-4 Mucus - /Lpf Epith occ /Lpf Bacteria trace /Hpf Amorphous - /Lpf Crystals, Fluid (Fma/CMC/CTX) many Ca+ oxalate # Complete Blood Count 02/12/2017 Ernst Gin ([facility]) WBC 10.2 x10^3/UL High 3.6-9.6 RBC 4.01 x10^6/UL 3.90-5.70 HGB 12.6 g/dL 12.1-17.2 HCT 36 % 36-50 MCV 91.0 fL 82.2-97.4 MCH 31.4 pg 27.6-33.3 MCHC 34.7 g/dL 33.0-35.5 RDW 13.7 % 11.6-13.7 PLT 283 x10^3/UL 150-400 MPV 8.2 fL 7.4-10.4 Gran # 5.4 x10^3/UL 1.5-7.2 Lymph# 4.3 x10^3/UL 0.7-4.9 Victoria# 0.5 x10^3/UL 0.1-0.9 Gran % 52.1 % 42.2-75.2 Lymph % 42.2 % 20.5-51.1 Victoria% 5.7 % 1.7-9.3 Comprehensive Metabolic 02/12/2017 Ernst Gin ([facility]) Sodium 142 mEq/L 134-149 Prof Potassium 4.3 mEq/L 3.6-5.5 Chloride 110 mEq/L [...] >60 ml/min/1.73m^ >=60 GFR >60 ml/min/1.73m^ >=60 Laboratory test 12/13/2016 [facility] PDF [id number] SEE IMAGE finding [address] [place] [address] (063)- - Toxassure(R) 12/13/2016 [facility] Report Summary FINAL 11 Select 13 (MW) [address] [place] [address] (402)- - PDF . Complete Blood Count 12/13/2016 Klever Gin (Fma) WBC 9.0 x10^3/UL 3.6-9.6 RBC 4.11 x10^6/UL 3.90-5.70 HGB 13.0 g/dL 12.1-17.2 HCT 38 % 36-50 MCV 93.0 fL 82.2-97.4 MCH 31.7 pg 27.6-33.3 MCHC 34.0 g/dL 33.0-35.5 RDW 13.7 % 11.6-13.7 PLT 409 x10^3/UL High 150-400 MPV 6.7 fL Low 7.4-10.4 Gran # 4.9 x10^3/UL 1.5-7.2 Lymph# 3.5 x10^3/UL 0.7-4.9 Victoria# 0.6 x10^3/UL 0.1-0.9 Gran % 53.3 % 42.2-75.2 Lymph % 40.0 % 20.5-51.1 Victoria% 6.7 % 1.7-9.3 Comprehensive Metabolic 12/13/2016 Ernst Gin ([facility]) Sodium 144 mEq/L 134-149 Prof Potassium 3.9 mEq/L 3.6-5.5 Chloride 111 mEq/L [...] GFR >60 ml/min/1.73m^ >=60 Ua - Micro (a) 03/05/2016 [facility] Medicine Appearance CLEAR (607)- - Color YELLOW [...] - Z#Comments - Complete Blood Count 10/09/2015 Ernst Gin (a) WBC 7.8 x10^3/UL 3.6-9.6 RBC 4.43 x10^6/UL 3.90-5.70 HGB 13.7 g/dL 12.1-17.2 HCT 41 % 36-50 MCV 93.0 fL 82.2-97.4 MCH 31.0 pg 27.6-33.3 MCHC 33.4 g/dL 33.0-35.5 RDW 13.5 % 11.6-13.7 PLT 357 x10^3/UL 150-400 MPV 7.5 fL 7.4-10.4 Gran # 4.2 x10^3/UL 1.5-7.2 Lymph# 3.2 x10^3/UL 0.7-4.9 Victoria# 0.4 x10^3/UL 0.1-0.9 Gran % 52.8 % 42.2-75.2 Lymph % 41.7 % 20.5-51.1 Victoria% 5.5 % 1.7-9.3 Laboratory test 10/09/2015 Ernst Gin ([facility]) Vitamin B-12 231 pg/mL 230-1050 finding Lipid Profile 10/09/2015 Ernst Gin ([facility]) Cholesterol 145 mg/dL 120- 200 Triglycerides 101 mg/dL 30-200 HDL Cholesterol 36 mg/dL 30-85 LDL (Calculated) 89 CALC 0-129 VLDL Cholesterol 20 mg/dL 0-50 HDL Risk Factor 4.0 CALC 0.0-4.4 Laboratory test finding 10/09/2015 Ernst Gin ([facility]) TSH 1.16 mIU/L 0.50-6.00 Vitamin D25 15 Low 30-100 15 Comprehensive Metabolic 10/09/2015 Ernst Gin ([facility]) Sodium 138 mEq/L 134-149 Prof Potassium 3.6 mEq/L 3.6-5.5 Chloride 97 mEq/L [...] growth in 36 - 48 hours. 4 Because ethnic data is not always readily [...] 15-29 5 Kidney failure <15 (or dialysis) 5 Desirable <150 Borderline high 150-199 High 200-499 Very High >500 6 Desirable <200 Borderline high 200-239 High >239 7 Low <40 Desirable: 40-60 High: >60 8 Desirable: <100 mg/dL Near Optimal: 100-129 mg/dL Borderline High: 130-159 mg/dL High: 160-189 mg/dL Very High: >189 mg/dL 9 Therapeutic target for the treatment of diabetes Mellitus patients is <7% HBA1C, and in selective patients <6.0%.Please refer to [place] [employer] Diabetic care guidelines for further information. 10 RESULTS VERIFIED BY REPEAT ANALYSIS 11 [...] Present not Declared for Prescription Verification Codeine 05815 UNEXPECTED ng/mg creat Morphine 679 UNEXPECTED ng/mg [...] ANALYSIS Procedures Date Code Description Status 05/25/2018 03701956 Mammogram Completed 10/09/2015 00348 Vision Test- screening test of visual acuity, Completed quantitative, bila Encounters Type Date Location Provider Dx Diagnosis Office Visit 12/18/2018 [facility] Office Elena Christine G43.009 Migraine w/o aura, 1:30p SUPRIYA Pabon not intractable, w/o status migrainosus I10 Essential (primary) hypertension Office Visit 05/13/2018 2:40p [facility] Office Kayleen Archibald, G43.009 Migraine w/o aura, M.D. not intractable, w/o status migrainosus M54.31 Sciatica, right side R31.29 Other microscopic hematuria Z12.31 Encntr screen mammogram for malignant neoplasm of breast Office Visit 01/21/2018 3:40p [facility] Office Kayleen Archibald, G43.009 Migraine w/o aura, M.D. not intractable, w/o status migrainosus M54.5 Low back pain R31.29 Other microscopic hematuria F33.0 Major depressive disorder, recurrent, mild J06.9 Acute upper respiratory infection, unspecified Office Visit 12/19/2017 8:00a [facility] Office Elena Christine M54.31 Sciatica, right Cm, VENDING SUPERVISOR side Office Visit 08/29/2017 2:15p [facility] Office Elena Christine M54.5 Low back pain Cm VENDING SUPERVISOR R31.29 Other microscopic hematuria Office Visit 08/04/2017 2:00p [facility] Office Amelia Meredith M54.5 Low back pain SUPRIYA Layton Office Visit 02/12/2017 1:40p [facility] Office Kayleen Dragan, F33.0 Major depressive M.D. disorder, recurrent, mild K80.50 Calculus of bile duct w/o cholangitis or cholecyst w/o obst G43.009 Migraine w/o aura, not intractable, w/o status migrainosus Z30.41 Encounter for surveillance of contraceptive pills Office Visit 12/13/2016 3:00p [facility] Office Kayleen Archibald, G43.009 Migraine w/o aura, M.D. not intractable, w/o status migrainosus F33.0 Major depressive disorder, recurrent, mild K80.50 Calculus of bile duct w/o cholangitis or cholecyst w/o obst E87.1 Hypo-osmolality and hyponatremia Office Visit 08/09/2016 10:50a [facility] Office Kayleen Dragan, F33.0 Major depressive M.D. disorder, recurrent, mild G43.009 Migraine w/o aura, not intractable, w/o status migrainosus F51.01 Primary insomnia Z12.31 Encntr screen mammogram for malignant neoplasm of breast Office Visit 03/29/2016 11:00a [facility] Office Kayleen Archibald, F33.0 Major depressive M.D. disorder, recurrent, mild G43.009 Migraine w/o aura, not intractable, w/o status migrainosus M54.5 Low back pain Office Visit 03/05/2016 Lexus Dennis G43.009 Migraine w/o aura, 1:45p Office [place] [employer] not intractable, w/o status migrainosus R30.0 Dysuria Office Visit 10/30/2015 2:30p [facility] Office Kayleen Archibald, F33.0 Major depressive M.D. 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 G43.009 Migraine w/o aura, not intractable, w/o status migrainosus Z13.220 Encounter for screening for lipoid disorders E55.9 Vitamin D deficiency, unspecified Office Visit 09/15/2015 2:00p [facility] Office Nano Arthur, R10.13 Epigastric pain VENDING SUPERVISOR G43.009 Migraine w/o aura, not intractable, w/o status migrainosus F33.0 Major depressive disorder, recurrent, mild F51.09 Oth insomnia not due to a substance or known physiol cond Plan of Treatment Future Appointment(s):02/17/2019 1:30 pm - Elena Pabon NP at [facility] Vohnfx2601/27/2019 - Elena Pabon, NPJ15.9 Unspecified bacterial pneumoniaNew Medication:Ventolin HFA 108(90 Base) mcg/Act - take 1-2 puffs inhaled every 4 hours as needed for wheezing or tightness in the chestComments: I recommend you also take delsym for nighttime cough.I10 Essential (primary) hypertensionNew Medication:Valsartan 80 mg - 1 by mouth every dayComments:Call or return to the office if:* you get more than one blood pressure reading above 160/100 (even if only one of the numbers is high)* you feel close to passing out or actually pass out* you have new or worsening swelling in the ankles, legs , hands, or face* you develop palpiatations or funny heartbeatsAllComments:1. Patient has been queried about patient's goals/preferences [...]
--- OUTSIDE RECORDS SUMMARY | 2019-02-20 10:28 | XMS REPORT | Continuity of Care Document ---
:1970 External Reference #:[id number] Author Name Elena Pabon NP Address [address] [facility] [place] [address] Care Team Providers Name Role Phone Kayleen Archibald M.D. 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 Ibuprofen 02/10 Active Tablets 800mg 30tab take 1 tab Elena Christine /2018 s 1-2 times Cm per day [employer] Ventolin HFA 01/27 Active Aerosol 108(90Bas 18gm take 1-2 J15.9 Elena CNakita /2018 e) puffs gwen Pabon/Sarah inhaled [employer] every 4 hours as needed for [...] ne # bs tablet by mi Pabon [employer]TER SUPERVISOR every 6 hours as needed for pain [...] Tablet By Viri Mi [place], Every Day [employer]PER[employer] Bupropion HCL ER 10/09 Active Tablets 150mg 60tab Take Two F33.0 Amelia (XL) ER 24HR s Tablets By Viri Mouth [place], Every Day [employer]PER[employer] Pantoprazole Sodium 09/15 Active Tablets 20mg 60tab Take One R10.13 Kd A. s Tablet By Yulissa, Mouth M.D. 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 Amitriptyline HCL 01/21 Hx Tablets 25mg 30tab Take One G43.009 Kayleen s Tablet By [place], - Mouth AT M.D. 05/13 Bedtime Naproxen 12/19 Hx Tablets 500mg 30tab take one M54.31 Elena Christine s by mouth Cm, - twice [employer] 05/13 daily needed Physical Therapy 12/19 Hx please M54.31 Elena Christine /2017 diagnose Cm, - and treat [employer] 01/20 for lower back pain with radiation down right leg Skelaxin 07/30 Hx Tablets 800mg 30tab 1 by mouth Elena Christine /2016 s three Cm, - times a [employer] 05/13 day needed muscle spasms Acetaminophen-Codei 06/03 Hx Tablets 300-60mg 90tab 1 tab G43.009 Kayleen ne #4 s dorothy Archibald, - times a M.D. 08/04 day needed Hydrocodone-Acetami 04/08 Hx Tablets 5-325mg 60tab 1 tab by G43.009 Kayleen mckeonhen /2016 s mouth [place], - twice a M.D. 06/03 day needed Acetaminophen-Codei 02/12 Hx Tablets 300-30mg 180ta 1 tab by G43.009 Kayleen ne #3 bs mouth [place], - every 4 M.D. 05/16 hours needed Winsome 02/12 Hx Tablets 0.35mg 30tab 1 by mouth Z30.41 s every day [place], - M.D. 05/13 Amitriptyline HCL 02/12 Hx Tablets 10mg 30tab Take One G43.009 Kayleen s Tablet By [place], - Mouth AT M.D. 01/21 Bedtime Amoxicillin/Clavula 01/06 Hx Tablets 500-125mg 14tab 1 by mouth Kayleen nunu Potassium s twice a [place], - day x 7 M.D. Hydrocodone-Acetami 12/13 Hx Tablets 5-325mg 60tab 1 tab by G43.009 Kayleen nophen s mouth [place], - twice a M.D. Orphenadrine 09/09 Hx Tablets 100mg 60tab Take One Kayleen Citrate ER ER 12HR s Tablet By [place], - Mouth M.D. 02/12 Twice Day as Needed For Muscle Spasm Hydrocodone-Acetami 08/15 Hx Tablets 5-325mg 30tab 1 twice a s day as [place], - needed M.D. 12/13 Trazodone HCL 08/09 Hx Tablets 50mg 30tab Take 1/2 - F51.01 s 1 Tablet [place], - By Mouth M.D. 02/12 Night as Needed Hydrocodone-Acetami 07/26 Hx Tablets 5-325mg 30tab 1 twice a Kayleen nophen s day as [place], - needed M.D. 08/09 Orphenadrine 03/29 Hx Tablets 100mg 60tab Take One Kayleen Citrate ER ER 12HR s Tablet By [place], - Mouth M.D. 08/09 Twice Day as Needed For Muscle Spasm Propranolol HCL 03/05 Hx Tablets 10mg 30tab 2 by mouth G43.009 Kayleen s every day [place], - M.D. 03/29 Maxalt 03/05 Hx Tablets 5mg 14tab take 1 G43.009 Nano s tablet by SUPRIYA Arthur - mouth to 12/13 abor migraine. if migraine persists after 6 hours, may repeat once then stop. maximum daily dose o Sumatriptan 11/27 Hx Tablets 100mg 30tab take 1/2 G43.009 Kayleen Succinate s tablet by [place], - mouth at M.D. 03/05 onset migraine, may repeat in 2 hours Skelaxin 11/03 Hx Tablets 800mg Delio JNakita /2014 [place], - M.D. 11/03 Skelaxin 11/03 Hx Tablets 800mg 30tab 1 by mouth s three [place], - times a M.D. 03/29 day needed muscle spasms Cyclobenzaprine HCL 10/30 Hx Tablets 5mg 60tab 1 tab by M54.5 Kayleen s mouth [place], - three M.D. 11/03 times day as needed Acetaminophen-Codei 09/15 Hx Tablets 300-30mg 240ta 2 tab by G43.009 Kayleen ne # bs mouth [place], - every 6 M.D. 12/13 hours needed Sumatriptan 09/15 Hx Tablets 50mg 8tabs 1 by mouth G43.009 Kayleen Succinate at the [place], - first sign M.D. 11/27 migraine and may repeat x 1 in 2 hours Low-Ogestrel 00/00 Hx Tablets 0.3-30mg- 168ta 1 by mouth Kayleen /0000 mcg bs every day [place], - M.D. 02/12 Temazepam 0000 Hx Capsules 15mg 15cap 1 by mouth F51.09 Kayleen /0000 s every [place], - night at M.D. 03/29 bedtime needed Escitalopram 00/00 Hx Tablets 20mg 30tab 1 by mouth F33.0 Nano Oxalate /0000 s every day SUPRIYA Arthur - 02/12 Hydrochlorothiazide 0000 Hx Tablets 25mg 30tab Take One Kayleen /0000 s Tablet By [place], - Mouth M.D. 12/13 Celecoxib 0000 Hx Capsules 200mg take 1 Unknown /0000 capsule by - mouth qd 02/10 Immunizations CPT Code Status Date Vaccine Lot # [id number] Given 10/30/2015 Pneumococcal Conjugate Vacc-13 [id number] Given 10/09/2015 Influenza Vac, Quadrivalent, Slit Virus, Im [id number] Vital Signs Date Vital Result Comment 02/17/2019 [...] +1 /Hpf # Comprehensive Metabolic Prof 05/13/2018 [facility] Sodium 135 mEq/L 134-149 Potassium 4.0 mEq/L [...] >60 ml/min/1.73m^ >=60 CBC Electronic a 05/13/2018 [facility] WBC 10.8 x10^3/UL High 4.0- 10.0 RBC 4.52 x10^6/UL 3.93-6.00 HGB 13.3 g/dL 12.0-17.0 HCT 41 % 35-50 MCV 91.6 fL 80.0-95.0 MCH 29.4 pg 25.6-32.2 MCHC 32.2 g/dL 32.0-36.0 RDW-CV 12.9 % 11.6-14.4 PLT 386 x10^3/UL 163-400 MPV 9.9 fL 9.4-12.4 Stephanie# 6.61 x10^3/UL High 1.56-6.13 Lymph# 3.07 x10^3/UL 1.18-3.74 Real# 1.05 x10^3/UL High 0.24-0.82 Eos # 0.1 x10^3/UL 0.0-0.5 Baso # 0.03 x10^3/UL 0.01-0.08 Stephanie% 60.9 % 34.0-70.0 Lymph % 28.3 % 20.0-52.0 Real% 9.7 % 5.0-12.0 Eos% 0.6 % Low 0.7-7.0 Baso% 0.3 % 0.1-1.2 Ua - Micro (Fma) 01/21/2018 [facility] Appearance CLEAR (607)- - Color YELLOW Glucose, [...] 01/21/2018 [facility] Urine Final 1, [address] [place] [address] Culture,[place] [address] (607)- - Result 1 See Comment: 3 Ua - Non Micro (Fma) 08/29/2017 [facility] Appearance clear (607)- - Color yellow Glucose, Urine (Fma/CMC/CTX) - Bilirubin - Ketones trace # SP Grav >=1.030 Blood - PH 6.0 Protein - Urobil 0.2 Nitrite - Leukocytes (Fma/CMC/Centrex) - Cell Morphology 08/25/2017 [facility] Platelet Morphology Large N RBC Morphology Normal N Normal Comp Metabolic Panel 08/25/2017 [facility] Sodium 137 mmol/L N 133-145 Potassium 3.4 [...] N >60 4 Lipid Profile (Trig/Chol/HDL) 08/25/2017 [facility] Triglycerides 86 mg/dL N 5 Cholesterol 129 mg/dL N 6 HDL Cholesterol 42.7 mg/dL N 7 LDL Cholesterol 69 mg/dL N 8 Laboratory test finding 08/25/2017 [facility] TSH (Thyroid Stim 2.56 mcIU/mL N 0.34-5.60 Horm) Urine Microalbumin 08/25/2017 [facility] Urine Creatinine 156.17 mg/dL N Random Ur Microalbumin (mg/L) 18.3 mg/L N Urine Microalbumin/Creatinine 11.7 ug/mg N <31 Laboratory test 08/25/2017 [facility] Hemoglobin A1c 4.8 % N Less than 6.0 9 finding (Glyco HGB) CBC Auto Diff 08/25/2017 [facility] White Blood Count 10.2 10^3/uL N 3.5-10.8 [...] Cells % 0.1 N Urinalysis Profile 08/25/2017 [facility] Urine Color Yellow N Urine Appearance Cloudy N Urine Specific [place] 1.032 High 1.010-1.030 Urine pH 5.0 N [...] Cell Present Abnormal Absent Ua - Micro ([facility]) 08/05/2017 [facility] Appearance clear (607)- - Color yellow Glucose, Urine (Fma/CMC/CTX) 500 # Bilirubin negative Ketones trace # SP Grav 1.025 Blood trace-intact # PH 6.0 Protein ssa trace # Urobil 0.2 Nitrite negative Leukocytes (Fma/CMC/Centrex) negative WBC (a,Centrex) 2-3 RBC 3-4 Mucus - /Lpf Epith occ /Lpf Bacteria trace /Hpf Amorphous - /Lpf Crystals, Fluid (Fma/CMC/CTX) many Ca+ oxalate # Complete Blood Count 02/12/2017 [facility] WBC 10.2 x10^3/UL High 3.6-9.6 RBC 4.01 x10^6/UL 3.90-5.70 HGB 12.6 g/dL 12.1-17.2 HCT 36 % 36-50 MCV 91.0 fL 82.2-97.4 MCH 31.4 pg 27.6-33.3 MCHC 34.7 g/dL 33.0-35.5 RDW 13.7 % 11.6-13.7 PLT 283 x10^3/UL 150-400 MPV 8.2 fL 7.4-10.4 Gran # 5.4 x10^3/UL 1.5-7.2 Lymph# 4.3 x10^3/UL 0.7-4.9 Real# 0.5 x10^3/UL 0.1-0.9 Gran % 52.1 % 42.2-75.2 Lymph % 42.2 % 20.5-51.1 Real% 5.7 % 1.7-9.3 Comprehensive Metabolic Prof 02/12/2017 [facility] Sodium 142 mEq/L 134-149 Potassium 4.3 mEq/L [...] ml/min/1.73m^ >=60 Laboratory test 12/13/2016 [facility] PDF [id number] SEE IMAGE finding [address] [place] [address] (134)- - Toxassure(R) 12/13/2016 [facility] Report Summary FINAL 11 Select 13 (MW) [address] [place] [address] (502)- - PDF . Complete Blood Count 12/13/2016 [facility] WBC 9.0 x10^3/UL 3.6- 9.6 RBC 4.11 x10^6/UL 3.90-5.70 HGB 13.0 g/dL 12.1-17.2 HCT 38 % 36-50 MCV 93.0 fL 82.2-97.4 MCH 31.7 pg 27.6-33.3 MCHC 34.0 g/dL 33.0-35.5 RDW 13.7 % 11.6-13.7 PLT 409 x10^3/UL High 150-400 MPV 6.7 fL Low 7.4-10.4 Gran # 4.9 x10^3/UL 1.5-7.2 Lymph# 3.5 x10^3/UL 0.7-4.9 Real# 0.6 x10^3/UL 0.1-0.9 Gran % 53.3 % 42.2-75.2 Lymph % 40.0 % 20.5-51.1 Real% 6.7 % 1.7-9.3 Comprehensive Metabolic Prof 12/13/2016 [facility] Sodium 144 mEq/L 134-149 Potassium 3.9 mEq/L [...] ml/min/1.73m^ >=60 Ua - Micro (Fma) 03/05/2016 [facility] Appearance CLEAR (607)- - Color YELLOW Glucose, [...] - Z#Comments - Complete Blood Count 10/09/2015 [facility] WBC 7.8 x10^3/UL 3.6- 9.6 RBC 4.43 x10^6/UL 3.90-5.70 HGB 13.7 g/dL 12.1-17.2 HCT 41 % 36-50 MCV 93.0 fL 82.2-97.4 MCH 31.0 pg 27.6-33.3 MCHC 33.4 g/dL 33.0-35.5 RDW 13.5 % 11.6-13.7 PLT 357 x10^3/UL 150-400 MPV 7.5 fL 7.4-10.4 Gran # 4.2 x10^3/UL 1.5-7.2 Lymph# 3.2 x10^3/UL 0.7-4.9 Real# 0.4 x10^3/UL 0.1-0.9 Gran % 52.8 % 42.2-75.2 Lymph % 41.7 % 20.5-51.1 Real% 5.5 % 1.7-9.3 Laboratory test 10/09/2015 [facility] Vitamin B-12 231 pg/mL 230- 1050 finding Lipid Profile 10/09/2015 [facility] Cholesterol 145 mg/dL 120-200 Triglycerides 101 mg/dL 30-200 HDL Cholesterol 36 mg/dL 30-85 LDL (Calculated) 89 CALC 0-129 VLDL Cholesterol 20 mg/dL 0-50 HDL Risk Factor 4.0 CALC 0.0-4.4 Laboratory test finding 10/09/2015 [facility] TSH 1.16 mIU/L 0.50- 6.00 Vitamin D25 15 Low 30-100 15 Comprehensive Metabolic Prof 10/09/2015 [facility] Sodium 138 mEq/L 134-149 Potassium 3.6 mEq/L [...] 2 Source of Specimen: clean catch 1 cheryr uri 3 Source of Specimen: clean catch [...] and in selective patients <6.0%.Please refer to [place] [employer] Diabetic care guidelines for further [...] Present not Declared for Prescription Verification Codeine 65032 UNEXPECTED ng/mg creat Morphine 679 UNEXPECTED ng/mg [...] ANALYSIS Procedures Date Code Description Status 05/25/2018 84488009 Mammogram Completed 10/09/2015 64719 Vision Test- screening test of visual acuity, Completed quantitative, bila Encounters Type Date Location Provider Dx Diagnosis Office Visit 01/27/2019 [facility] Elena Christine J15.9 Unspecified 1:30p SUPRIYA Pabon bacterial pneumonia I10 Essential (primary) hypertension Office Visit 12/18/2018 [facility] Elena Christine G43.009 Migraine w/o aura, 1:30p Office SUPRIYA Pabon not intractable, w/o status migrainosus [...] Office Elena Christine M54.31 Sciatica, right Cm, [employer]PER[employer] side Office Visit 08/29/2017 2:15p [facility] Office Elena Christine M54.5 Low back pain Cm, STE[employer] 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
[2019-02-20 11:27] VITALS: BP 155/80
--- NOTE | 2019-02-20 12:17 | UC ---
General HPI - HPI Summary HPI Summary: 02/15/19, saw pcp and dx with a uti. she was tx with Macrobid which she finished today. 02/18/19, return to pcp for vaginal burning and itch. she was dx with a yeast infection after pelvic exam. they tx with Terconozole but the pharmacy was out so the pcp advise she tx with Vagisil until the medication was available. Friday02/19/19(today), c/o he vaginal area being "on fire with redness and sores". She competed the Macrobid and stopped the Vagisil plus never got the Terconozole. No fever, abdominal pain or any other rash. Still donahue with any urination that touches her outside. Denies any other illness. Pt took a left over Tylenol #3 with no relief. - History of Current Complaint Chief Complaint: UCGeneralIllness Stated Complaint: POSS.ALLERGIC REATION Time Seen by Provider: 02/20/19 12:07 Hx Obtained From: Patient Hx Last Menstrual Period: "A MONTH AGO" Onset/Duration: Gradual Onset Timing: Constant Pain Intensity: 5 Associated Signs & Symptoms: Negative: Abdominal Pain, Fever - Allergy/Home Medications Allergies/Adverse Reactions: Allergies Allergy/AdvReac Type Severity Reaction Status Date / Time Latex, Natural Rubber Allergy Severe Anaphylatic Verified 02/20/19 11:20 Shock SEASONAL Allergy Mild See Comment Uncoded 02/20/19 11:20 Home Medications: Home Medications Norgestimate-Ethinyl Estradiol [Ortho-Cyclen 28 Tablet] 1 tab DAILY 02/20/19 [ History Confirmed 02/20/19] PMH/Surg Hx/FS Hx/Imm Hx Previously Healthy: Yes - Surgical History Surgical History: Yes Surgery Procedure, Year, and Place: Tummy Tuck, [place], [facility]; Gastric Bypass and Spleenectomy, 2003, [place]; Cholecystectomy, ~2009, [facility]; Tonsillectomy, ~1974 , [place]; Herniorrhaphy, 1970, [place] - Family History Known Family History: Positive: Cardiac Disease - Social History Occupation: Employed Full-time Alcohol Use: Occasionally Substance Use Type: None Smoking Status (MU): Never Smoked Tobacco Review of Systems All Other Systems Reviewed And Are Negative: Yes Genitourinary: Positive: Vaginal/Penile Burning, Vaginal/Penile Itching, Vaginal /Penile Discharge, Vaginal/Penile Pain, Ulceration/Lesion Physical Exam Triage Information Reviewed: Yes Appearance: Well-Appearing Vital Signs: Initial Vital Signs Temp 98.2 F 02/20/19 11:21 Pulse 79 02/20/19 11:21 Resp 16 02/20/19 11:21 BP 155/80 02/20/19 11:21 Pulse Ox 100 02/20/19 11:21 Vital Signs Reviewed: Yes Eyes: Positive: Conjunctiva Clear ENT: Positive: Normal ENT inspection Neck: Positive: Supple, Nontender, No Lymphadenopathy Respiratory: Positive: Lungs clear, Normal breath sounds Cardiovascular: Positive: RRR, No Murmur Abdomen Description: Positive: Nontender, No Organomegaly, Soft. Negative: Distended, Guarding Bowel Sounds: Positive: Present Pelvic Exam: Positive: Other - L crease of groin has a small area with 4 painless superficial ulcers. The labia are red and swollen. The vaginal is red and swollen plus 3, 1cm superficial - very painful ulceartions seen. Vagina is very painful and has a clear mucoid material. The ulcerations are friable. Visualizing her full vagina/cervix is limited by pain. Cultures obtained. Bimanual exam = no overt CMT or adnexal tenderness. Dr Montemayor in for a visual inspection. Musculoskeletal: Positive: ROM Intact Neurological: Positive: Alert Psychological: Positive: Age Appropriate Behavior Skin Exam: Normal, Other - No rash aside from groin/vaginal areas. Course/Dx - Course Course Of Treatment: Consult with Dr Cordero [facility] control equipment electrician OB?RECRUITING AND SELECTION CONSULTANT place. We discussed her hx, prior tx 's and current PE. We agreed on the workup. He directed her tx plan. He will see her this coming Friday at 8:30 am in his office. Pt will be advised to go to the [facility] ER for any worsening. - Differential Dx - Multi-Symptom Differential Diagnoses: Other - EBV, trich, GC/Chlamydia, BV, Herpes are included but not limited to this. I do NOT feel this is Novoa Primo Syndrom , there is no blistering or peeling and it is very local. - Diagnoses Provider Diagnosis: Vulvovaginitis Discharge - Sign-Out/Discharge Documenting (check all that apply): Patient Departure All imaging exams completed and their final reports reviewed: No Studies - Discharge Plan Condition: Stable Disposition: HOME Prescriptions: DOXYcycline CAP(*) [DOXYcycline 100MG CAP(*)] 100 mg PO BID 10 Days #20 cap Hydrocodone/Acetaminophen [[place] 5-325 Tablet] 1 each PO Q6HR PRN #15 tablet MDD 4 PRN Reason: Pain Patient Education Materials: Vaginitis (ED) Forms: *Work Release Referrals: Gentry Cordero MD [Medical Doctor] - Additional Instructions: BE AT DR CORDERO'S OFFICE THIS FRIDAY AT 8:30AM(02/22/19). PER HIS INSTRUCTION. GO TO THE [facility] ER FOR ANY WORSENING. STOP ALL PRIOR MEDICATIONS, SOAPS AND TREATMENTS. AVOID ALL SOAPS. TAKE A SITZ BATH TWICE DAILY WITH ENOUGH BETADINE TO STAIN THE WATER A LIGHT YELLOW ONLY. - Billing Disposition and Condition Condition: STABLE Disposition: Home - Attestation Statements Provider Attestation: I was consulted by Brook and I did examine pt. I agree w/ Brook's assessment. She did discuss this with RECRUITING AND SELECTION CONSULTANT control equipment electrician who helped direct care. Addendum entered and electronically signed by Brook Cedillo PA 02/20/19 14:02 : Addendum Addendum: NO HX HTN, BP PAIN RELATED.
--- NOTE | 2019-02-20 16:05 | UC ---
- Progress Note Progress Note: Rubia arora be on the differential as well. Course/Dx - Diagnoses Provider Diagnoses: Vulvovaginitis Discharge - Sign-Out/Discharge Documenting (check all that apply): Patient Departure All imaging exams completed and their final reports reviewed: No Studies - Discharge Plan Condition: Stable Disposition: HOME Prescriptions: DOXYcycline CAP(*) [DOXYcycline 100MG CAP(*)] 100 mg PO BID 10 Days #20 cap Hydrocodone/Acetaminophen [Pep 5-325 Tablet] 1 each PO Q6HR PRN #15 tablet MDD 4 PRN Reason: Pain Patient Education Materials: Vaginitis (ED) Forms: *Work Release Referrals: Gentry Cordero MD [Medical Doctor] - Additional Instructions: BE AT DR CORDERO'S OFFICE THIS FRIDAY AT 8:30AM(02/22/19). PER HIS INSTRUCTION. GO TO THE [facility] ER FOR ANY WORSENING. STOP ALL PRIOR MEDICATIONS, SOAPS AND TREATMENTS. AVOID ALL SOAPS. TAKE A SITZ BATH TWICE DAILY WITH ENOUGH BETADINE TO STAIN THE WATER A LIGHT YELLOW ONLY. - Billing Disposition and Condition Condition: STABLE Disposition: Home
[2019-02-21 10:40] LABS: ABS Basophils 0 10^3/ul (0-0.2); ABS Eosinophils 0.1 10^3/ul (0-0.6); ABS Lymphocytes 1.7 10^3/ul (1.0-4.8); ABS Monocytes 1.3 10^3/ul (0-0.8); ABS Neutrophils 5.1 10^3/ul (1.5-7.7); ABS Nucleated RBC 0 10^3/ul; Eosinophil % 0.7 %; Hematocrit 36 % (33-41); Hemoglobin 11.5 g/dL (12.0-16.0); Lymphocyte % 20.8 %; Mean Corpuscular HGB Conc 32 g/dL (31-36); Mean Corpuscular Hemoglobin 28 pg (27-31); Mean Corpuscular Volume 89 fL (80-97); Nucleated Red Blood Cells % 0.1; Platelet Count 324 10^3/uL (150-450); Red Blood Count 4.04 10^6 /uL (3.70-4.87); Red Cell Distribution Width 15 % (10.5-15); White Blood Count 8.2 10^3/uL (3.5-10.8)
[2019-02-22 13:40] LABS: Neisseria gonorrhoeae (GC) RNA Negative (Negative)
[2019-02-22 13:55] LABS: Trichomonas vaginalis Result Positive (Negative)
--- NOTE | 2019-02-23 07:19 | UC ---
- Progress Note Progress Note: vaginal culture results : + Gardnerella and + T. vaginalis please have the pt. stop Doxy will call in Flagyl 500 mg bid x 7 days Course/Dx - Diagnoses Provider Diagnoses: Vulvovaginitis Discharge - Sign-Out/Discharge Documenting (check all that apply): Patient Departure All imaging exams completed and their final reports reviewed: No Studies - Discharge Plan Condition: Stable Disposition: HOME Prescriptions: DOXYcycline CAP(*) [DOXYcycline 100MG CAP(*)] 100 mg PO BID 10 Days #20 cap Hydrocodone/Acetaminophen [[place] 5-325 Tablet] 1 each PO Q6HR PRN #15 tablet MDD 4 PRN Reason: Pain metroNIDAZOLE [Flagyl] 500 mg PO BID #14 tablet Patient Education Materials: Vaginitis (ED) Forms: *Work Release Referrals: Gentry Cordero MD [Medical Doctor] - Additional Instructions: BE AT DR CORDERO'S OFFICE THIS FRIDAY AT 8:30AM(02/22/19). PER HIS INSTRUCTION. GO TO THE [facility] ER FOR ANY WORSENING. STOP ALL PRIOR MEDICATIONS, SOAPS AND TREATMENTS. AVOID ALL SOAPS. TAKE A SITZ BATH TWICE DAILY WITH ENOUGH BETADINE TO STAIN THE WATER A LIGHT YELLOW ONLY. - Billing Disposition and Condition Condition: STABLE Disposition: Home
[2019-02-23 15:34] LABS: Herpes Simplex Virus I IgG AB Negative (Negative); Herpes Simplex Virus II IgG AB Negative (Negative)
[2019-02-23 15:55] LABS: EBV Capsid Ag IgG Ab Positive (Negative); EBV Capsid Ag IgM Ab Negative (Negative); Epstein-Barr Nuclear Antigen Positive (Negative)
[2019-02-23 23:39] LABS: HSV 1 PCR Negative (Negative); Herpes Source VAGINAL
== END 2019-02-20 13:36 | disposition home or self-care (01) ==
LOC: UCCORT 10:21
DX: N76.0 Acute vaginitis (principal); Z91.09 Other allergy status, other than to drugs and biological substances; Z91.040 Latex allergy status
CPT/HCPCS: 36415; 85025; 86592; 86664; 86665; 86695; 86696; 87070; 87480; 87491; 87510; 87529; 87591; 87661; 99212; G0463

== ENCOUNTER 2019-08-16 13:32 | Emergency (ER) | payer BC ==
[2019-08-16 14:20] VITALS: BP 151/76
--- NOTE | 2019-08-16 14:39 | UC ---
Abdominal Pain Female HPI - HPI Summary HPI Summary: 49-year-old female who had a gastric bypass in 2003 which has caused her to have chronic diarrhea. She weighed 398 pounds prior to the gastric bypass. She states today she was 167, a few months ago she was 190. She has continually had sharp abdominal pains over the past few months but on Friday they worsened and she was unable to sleep last night because of the abdominal pain. She has some nausea but no vomiting. She denies any urinary symptoms. - History of Current Complaint Chief Complaint: UCGI Stated Complaint: STOMACH PAINS Time Seen by Provider: 08/16/19 14:20 Hx Obtained From: Patient Hx Last Menstrual Period: 08/12/19 ?: No Onset/Duration: Gradual Onset, Other - Intermittent sharp abdominal pain over the past few months but worse over the past 3 days. Timing: Constant Severity Initially: Mild Severity Currently: Moderate Pain Intensity: 9 Location: Epigastric Radiates: No Character: Sharp Aggravating Factor(s): Nothing Alleviating Factor(s): Nothing Associated Signs and Symptoms: Positive: Nausea Allergies/Adverse Reactions: Allergies Allergy/AdvReac Type Severity Reaction Status Date / Time Latex, Natural Rubber Allergy Severe Anaphylatic Verified 08/16/19 14:20 Shock SEASONAL Allergy Mild See Comment Uncoded 08/16/19 14:20 PMH/Surg Hx/FS Hx/Imm Hx Previously Healthy: Yes - Surgical History Surgical History: Yes Surgery Procedure, Year, and Place: Tummy Tuck, 2003, [facility] [place]; Gastric Bypass and Spleenectomy, 2003, [place]; Cholecystectomy, ~2009, [facility] [place]; Tonsillectomy, ~1974 , [place]; Herniorrhaphy, 1970, [place] - Family History Known Family History: Positive: Cardiac Disease - Social History Alcohol Use: Occasionally Substance Use Type: None Smoking Status (MU): Never Smoked Tobacco Review of Systems All Other Systems Reviewed And Are Negative: Yes Gastrointestinal: Positive: Abdominal Pain - Patient has had intermittent chronic abdominal pain over the past few months but worsening over the past week and to the point she couldn't sleep well last night., Diarrhea - Patient has chronic diarrhea as a result of having the gastric bypass in 2003., Nausea Is Patient Immunocompromised?: No Physical Exam Triage Information Reviewed: Yes Appearance: Well-Appearing, No Pain Distress, Well-Nourished Vital Signs: Initial Vital Signs Temp 98.2 F 08/16/19 14:12 Pulse 73 08/16/19 14:12 Resp 18 08/16/19 14:12 BP 151/76 08/16/19 14:12 Pulse Ox 100 08/16/19 14:12 Vital Signs Reviewed: Yes Eyes: Positive: Conjunctiva Clear ENT: Positive: Pharynx normal, TMs normal, Uvula midline Neck: Positive: Supple, Nontender, No Lymphadenopathy Respiratory: Positive: Lungs clear, Normal breath sounds, No respiratory distress, No accessory muscle use Cardiovascular: Positive: RRR, No Murmur, Pulses Normal, Brisk Capillary Refill Abdomen Description: Positive: No Organomegaly, Soft, Guarding - Mild guarding in the epigastric area on palpation. Tenderness on palpation in the epigastric area.. Negative: CVA Tenderness (R), CVA Tenderness (L), Distended, Hepatomegaly, McBurney's Point Tenderness, Splenomegaly Bowel Sounds: Positive: Present Musculoskeletal Exam: Normal Neurological Exam: Normal Psychological Exam: Normal Skin: Positive: Other - Patient has excessive skin is result of the significant weight loss she has experienced. Abd Pain Female Course/Dx - Course Course Of Treatment: Because of the nature of the abdominal pain and the fact that since Friday has been worsening to the point she can't sleep and she is feeling nauseous and she is tender in the epigastric area feel she needs to be evaluated further in the emergency room. Patient is agreeable to this plan of action. - Differential Dx/Diagnosis Provider Diagnosis: Abdominal pain Discharge ED - Sign-Out/Discharge Documenting (check all that apply): Patient Departure All imaging exams completed and their final reports reviewed: No Studies - Discharge Plan Condition: Fair Disposition: HOME-RECOMMEND TO ED Referrals: Kayleen Archibald MD [Primary Care Provider] - Additional Instructions: After the evaluation by the nurse practitioner, it is recommended that you go to the emergency room for further evaluation of the abdominal pain where you should receive additional testing that can be completed in the emergency department. It is recommended that you go directly to the emergency department. This evaluation may include blood work or imaging. This testing will be directed and decided by the provider that evaluates you within the emergency department. If pain becomes worse, you feel lightheaded or you develop uncontrolled vomiting, or have any other concerns while you are driving to the emergency room, please boat puller and call 911. - Billing Disposition and Condition Condition: FAIR Disposition: Home-Recommend to ED
== END 2019-08-16 14:38 | disposition home health service (06) ==
LOC: UCCORT 13:32
DX: R10.13 Epigastric pain (principal); Z98.84 Bariatric surgery status
CPT/HCPCS: 99212; G0463